=== PATIENT | male | born 1940 | race Caucasian/White ===

== ENCOUNTER 2017-04-24 07:25 | Day surgery (SDC) | payer MEDICARE, OTHER ==
--- NOTE | ~2017-04-24 | EGD ---
EGD REPORT [facility] [address] [id number] NAME: AJ FRANCIS : [birth year] STATUS : REG [facility]#: [id number] AGE: 76 ADM/REG DATE : 04/24/17 MR#: [id number] REPORT SERV DATE: 04/24/17 DICTATED BY: KADEEM VERA III DATE: 04/24/17 REPORT STATUS : Draft TRANSCRIBED BY: [facility] DATE: 04/24/17 [facility] Patient Name: Aj Francis Date of : 1940 Attending MD: KADEEM VERA III, MD Procedure Date No Time: 04/24/2017 Procedure: Colonoscopy Indications: High risk colon cancer surveillance: Personal history of colonic polyps Referring MD: MEY DC Medicines: Propofol per Anesthesia Complications: No immediate complications. Procedure: Pre-Anesthesia Assessment: - ASA Grade Assessment: III - A patient with severe systemic disease. After I obtained informed consent, the scope was passed under direct vision. Throughout the procedure, the patient's blood pressure, pulse, and oxygen saturations were monitored continuously. The PCF [id number] was introduced through the anus and advanced to the cecum, identified by appendiceal orifice and ileocecal valve. The colonoscopy was performed with ease. The patient tolerated the procedure well. The quality of the bowel preparation was good. Findings: Multiple diverticula were found in the sigmoid colon. External and internal hemorrhoids were found during retroflexion. Three sessile polyps were found in the cecum. The polyps were 4 to 5 mm in size. These polyps were removed with a cold biopsy forceps. Resection and retrieval were complete. A sessile polyp was found in the transverse colon. The polyp was 5 mm in size. The polyp was removed with a cold biopsy forceps. Resection and retrieval were complete. Impression: - Diverticulosis in the sigmoid colon. - External and internal hemorrhoids. - Three 4 to 5 mm polyps in the cecum. Resected and retrieved. - One 5 mm polyp in the transverse colon. Resected and retrieved. Recommendation: - Patient has a contact number available for emergencies. The signs and symptoms of potential delayed complications were discussed with the patient. Return to EGD REPORT [address] [address] NAME: AJ FRANCIS : [birth year] STATUS : REG [facility] [place] PAT#: [id number] AGE: 76 ADM/REG DATE : 04/24/17 MR#: [id number] REPORT SERV DATE: 04/24/17 DICTATED BY: KADEEM VERA III DATE: 04/24/17 REPORT STATUS : Draft TRANSCRIBED BY: [employer] DATE: 04/24/17 normal activities tomorrow. Written discharge instructions were provided to the patient. - Discharge patient to home. - High fiber diet indefinitely. - Continue present medications. - Await pathology results. Procedure Code(s): --- Professional --- 12692, Colonoscopy, flexible, proximal to splenic flexure; with biopsy, single or multiple Diagnosis Code(s): --- Professional --- K64.8, Other hemorrhoids K57.30, Diverticulosis of large intestine without perforation or abscess without bleeding D12.3, Benign neoplasm of transverse colon D12.0, Benign neoplasm of cecum Z86.010, Personal history of colonic polyps CPT copyright 2013 [employer]. All rights reserved. The codes documented in this report are preliminary and upon field sales engineer review may be revised to meet current compliance requirements. KADEEM VERA III, MD 04/24/2017 9:32 AM This report has been signed electronically. Number of Addenda: 0 Note Initiated On: 04/24/2017 9:06 AM Scope Withdrawal Time 0 hours 11 minutes 58 seconds [id number] [id number]
[~2017-04-24 07:25] MED LIST: ASABAYER PO; ASAEC PO; BEN25 PO; ISOPTINSR PO; KLOR-CON M2020 MEQ PO; L40 PO; MINITRAN0.2 MG/HR TOP; NITROII10C TOP; NITROSTAT0.4 MG SL; P5 PO; PLAVIX PO; VERELAN240 MG PO; VITAMIN D31000 UNIT PO; VYTORIN 10/20 T1 TAB PO; ZANTAC 150 PO; [UNRECOGNIZED DRUG - OTHER] PO
== END 2017-04-24 23:59 | disposition home or self-care (01) ==
LOC: DMU 07:25
PROVIDERS: Internal Medicine Gastroenterology
PROC: 0DBL8ZZ Excision of Transverse Colon, Via Natural or Artificial Opening Endoscopic (ICD-10-PCS; 2017-04-24)
PROC: 0DBH8ZZ Excision of Cecum, Via Natural or Artificial Opening Endoscopic (ICD-10-PCS; principal; 2017-04-24 09:00)
DX: Z12.11 Encounter for screening for malignant neoplasm of colon (principal); D12.0 Benign neoplasm of cecum; D12.3 Benign neoplasm of transverse colon; K64.8 Other hemorrhoids; K57.30 Diverticulosis of large intestine without perforation or abscess without bleeding; I10 Essential (primary) hypertension; Z95.1 Presence of aortocoronary bypass graft; Z95.5 Presence of coronary angioplasty implant and graft; E78.00 Pure hypercholesterolemia, unspecified; M19.90 Unspecified osteoarthritis, unspecified site; I21.3 ST elevation (STEMI) myocardial infarction of unspecified site; M10.9 Gout, unspecified; I25.10 Atherosclerotic heart disease of native coronary artery without angina pectoris; K21.9 Gastro-esophageal reflux disease without esophagitis; Z86.010 Personal history of colon polyps; Z95.810 Presence of automatic (implantable) cardiac defibrillator; Z90.49 Acquired absence of other specified parts of digestive tract; Z98.41 Cataract extraction status, right eye; Z98.42 Cataract extraction status, left eye; Z96.1 Presence of intraocular lens; Z87.442 Personal history of urinary calculi; Z86.73 Personal history of transient ischemic attack (TIA), and cerebral infarction without residual deficits; Z87.891 Personal history of nicotine dependence; Z88.8 Allergy status to other drugs, medicaments and biological substances
CPT/HCPCS: 88305